=== PATIENT | female | born 1990 | race African-American/Black ===

== ENCOUNTER 2016-08-30 18:13 | Emergency (ER) | payer OTHER ==
[~2016-08-30] VITALS: Ht 165.1 cm; Wt 63.5 kg
--- NOTE | ~2016-08-30 | EKG ---
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
[~2016-08-30 18:13] MED LIST: FLEXERIL PO; HYDROCODONE-AP1 EAC6 PO; IBUPROFEN 600600 M1 PO; MACROBID 100 M100 M1 PO; NOHOMEMEDICATIONS; NORCO 5-325 TA1 EACH PO; TOBRAMYCIN SULFA5 ML OP; TYLENOL W/CODEI1 TA2 PO; ZOFRAN ODT4 MG PO
[2016-08-30] MEDS ORDERED: DEPO-PROVE150 MG/1 M (18:34)
[2016-08-30] MEDS ORDERED: ALLEGRA ALLERG180 MG PO (18:36)
[2016-08-30] MEDS ORDERED: ESTRACE0.5 MG PO (18:36)
[2016-08-30] MEDS ORDERED: LIDODERM 5%1 PATC1 TRANSDERM (19:42)
[2016-08-30] MEDS ORDERED: NAPROSYN500 MG PO (19:42)
[2016-08-30 20:20] VITALS: BP 128/76
== END 2016-08-30 20:20 | disposition home or self-care (01) ==
LOC: ER 18:13
DX: R07.89 Other chest pain (principal)